=== PATIENT | female | born 1980 | race Caucasian/White ===

== ENCOUNTER 2019-03-19 21:45 | Emergency (ER) | payer MEDICAID ==
[~2019-03-19] VITALS: Ht 154.9 cm; Wt 80.7 kg
--- NOTE | 2019-03-19 23:00 | NUR ---
Tray escalera in EDM - 03/19/19 at 2303 by YULY Patient discharged to home in stable condition. Written and verbal after care instructions given. Patient verbalizes understanding of instruction. Pt ambulatory with a steady gait
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
[2019-03-19] MEDS ORDERED: oxyCODONE/APAP (5/325 MG) 1 UDTAB TABLET PO ONE (23:30)
[2019-03-19] MEDS ORDERED: oxyCODONE/APAP (5/325 MG) 1 UDTAB TABLET ONE (23:38)
--- NOTE | 2019-03-19 23:41 | NUR ---
PT INFROMED ME THAT SHE THINK SHE HIT HER HEAD TOO. PT IS STATING THAT ITS STARTING TO HURT ESPECIALLY WITH TOUCH. MD AWARE. ORDERED CT OF HEAD.
--- NOTE | 2019-03-19 23:54 | NUR ---
PT TO CT
--- NOTE | 2019-03-20 00:34 | NUR ---
Patient discharged to home in stable condition. Written and verbal after care instructions given. Patient verbalizes understanding of instruction. Pt ambulatory with a steady gait
[2019-03-20 01:51] VITALS: BP 125/82
== END 2019-03-20 01:52 | disposition home or self-care (01) ==
LOC: ER 21:51
DX: R07.89 Other chest pain (principal); R51 Headache; V49.49XA Driver injured in collision with other motor vehicles in traffic accident, initial encounter; Y93.89 Activity, other specified; Y92.488 Other paved roadways as the place of occurrence of the external cause; Y99.8 Other external cause status
CPT/HCPCS: 70450-TC; 71100-TC; 72125-TC

== ENCOUNTER 2023-06-27 14:25 | Emergency (ER) | payer MEDICAID ==
[~2023-06-27] VITALS: Ht 160 cm; Wt 77.1 kg
[2023-06-27 14:53] VITALS: BP 138/105; TEMP 98.1; O2SAT 98
[2023-06-27] MEDS ORDERED: EPIN0.3P3 IM (15:02)
== END 2023-06-27 15:28 | disposition home or self-care (01) ==
LOC: ER 14:31
DX: T78.40XA Allergy, unspecified, initial encounter (principal); X58.XXXA Exposure to other specified factors, initial encounter